=== PATIENT | male | born 1950 | race Caucasian/White ===

== ENCOUNTER 2017-03-28 15:57 | Outpatient (CLI) | payer MEDICARE, BC | END 2017-03-28 15:58 | disposition home or self-care (01) | LOC: BICMRI 15:57 | PROVIDERS: ATTEND Family Medicine | DX: M47.26 Other spondylosis with radiculopathy, lumbar region (principal); M54.2 Cervicalgia; M47.892 Other spondylosis, cervical region | CPT/HCPCS: 72141; 72148 ==

== ENCOUNTER 2017-04-29 05:45 | Day surgery (SDC) | payer MEDICARE, BC ==
[2017-04-28 10:36] VITALS: BMI 27.8
--- NOTE | 2017-04-29 01:50 | HP ---
SHORT STAY HISTORY AND PHYSICAL DATE OF ADMISSION: 04/29/2017 HISTORY OF PRESENT ILLNESS: This is a 66-year-old male with abdominal pain off and on over the last 2 years. Pain is high up in the epigastric area, it occurs off and on. The pain is intermittent. I t does not radiate. The pain occurs at random. The patient is undergoing EGD, because of his abdomi nal pain. ALLERGIES: None. SOCIAL HISTORY: Former smoker. Does not drink alcohol. MEDICAL ILLNESSES: 1. Hypothyroidism. 2. History of achalasia, status post myotomy, many years ago. 3. Gout. 4. Acid reflux. 5. Hiatal hernia repair. PHYSICAL EXAMINATION: VITAL SIGNS: Pulse is 70, blood pressure 130/70. HEENT: Conjunctivae clear. CARDIOVASCULAR SYSTEM: First and second heart sounds normal. LUNGS: Clear to auscultation. ABDOMEN: Soft to palpate. Abdomen is tender over the epigastric area. There is no rebound or guard ing. No organomegaly or masses. ADMITTING DIAGNOSIS: Abdominal pain, persistent over the last 2 years. PLAN: EGD.
[2017-04-29] MEDS ORDERED: PROPOFOL 200 MG/20 ML VIAL ONE (06:47)
[2017-04-29] MEDS ORDERED: Lidocaine 1% PF 5 ML VIAL ONE (06:47)
--- NOTE | 2017-04-29 11:45 | OP ---
DATE OF SURGERY: 04/29/2017 OPERATIVE PROCEDURE: Esophagogastroduodenoscopy. PREOPERATIVE DIAGNOSES: A 66-year-old with abdominal pain over the last few months. The pain is ove r the epigastric area. The patient is undergoing esophagogastroduodenoscopy. POSTOPERATIVE DIAGNOSES. Retained food material in the distal esophagus and also proximal stomach. He also has some retained food material in the gastric antrum. Some area is not well visualized. Ho wever, no gross pathology seen to explain abdominal pain. PROCEDURE NOTE: The patient was placed on his left lateral position and was given sedation by Anesth esia Department. A [employer] video gastroscope under direct vision was passed down the oropharynx upon the GE junction into the stomach and subsequently into the descending duodenum. The patient had saurabh ined food material over the distal esophagus and GE junction. Upon entering the stomach, the patient again found to have retained food material in the proximal stomach, fundus and cardia. Some areas w ere not visualized because of retained food materials. The gastric body, no pathology. The gastric antrum again shows some retained food material. The duodenal bulb and descending duodenum, no pathol ogy seen. The stomach was decompressed and the scope removed. DISCHARGE PLANNING: This is a 66-year-old male with abdominal pain over the last several m onths. The esophagogastroduodenoscopy showed no pathology, but however, the exam was suboptimal moshe use of retained food material. We will plan to obtain abdominal CAT scan. The abdominal CAT scan is negative, may bring the patient back for repeat esophagogastroduodenoscopy in the near future.
== END 2017-04-29 09:30 | disposition home or self-care (01) ==
LOC: SDC 05:45
PROVIDERS: ATTEND Internal Medicine Gastroenterology
PROC: 0DJ08ZZ Inspection of Upper Intestinal Tract, Via Natural or Artificial Opening Endoscopic (ICD-10-PCS; principal; 2017-04-29)
DX: R10.9 Unspecified abdominal pain (principal); T18.128A Food in esophagus causing other injury, initial encounter; K21.9 Gastro-esophageal reflux disease without esophagitis; E03.9 Hypothyroidism, unspecified; M10.9 Gout, unspecified; E78.5 Hyperlipidemia, unspecified; M19.042 Primary osteoarthritis, left hand; M19.041 Primary osteoarthritis, right hand; Z79.899 Other long term (current) drug therapy; Z98.890 Other specified postprocedural states; Z87.891 Personal history of nicotine dependence
CPT/HCPCS: J2001; J2704